=== PATIENT | male | born 1925 | race Caucasian/White ===

== ENCOUNTER 2016-12-22 17:35 | Inpatient (IN) | payer MEDICARE, BC ==
[2016-12-22] MEDS ORDERED: Sodium Chloride 0.9% 1,000 ML IV SCH (18:00)
--- NOTE | 2016-12-22 18:04 | EDM.PDOC ---
ED HPI GENERAL MEDICAL PROBLEM - General Chief Complaint: General Stated Complaint: decreased O2 sat, incontinence Time Seen by Provider: 12/22/16 17:45 Source of Information: Reports: Patient, correction records History Limitations: Reports: Other (confusion) - History of Present Illness INITIAL COMMENTS - FREE TEXT/NARRATIVE: pt in from the snf where they advise he has been confused, they also advised he fell a few times over the past few days, has abrasion to top of head , he also has a low 02 sat, on room air in the low to mid 80's. denies cp or sob , has a productive cough with yellow sputum. 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 (see below) (none) - Related Data Allergies Allergy/AdvReac Type Severity Reaction Status Date / Time No Known Allergies Allergy Verified 12/22/16 18:01 Home Meds: Home Meds Metoprolol Tartrate 25 mg pe PO BID 02/27/15 [History] Sertraline [Zoloft] 50 mg PO BEDTIME 02/27/15 [History] amLODIPine [Norvasc] 10 mg PO DAILY 02/27/15 [History] hydrALAZINE [Apresoline] 50 mg PO TID 02/27/15 [History] Acetaminophen [Acetaminophen Extra Strength] 1,000 mg PO Q4H 12/22/16 [History] Amino Acids/Protein Hydrolys [Liquacel 100 Liquid Packet] 30 ml PO DAILY [History] LORazepam [LORazepam] 0.25 mg PO Q6H PRN 12/22/16 [History] Sennosides/Docusate Sodium [Senna-Docusate Sodium] 2 each PO DAILY PRN 12/22/16 [History] Torsemide 20 mg PO DAILY 12/22/16 [History] Past Medical History HEENT History: Reports: Cataract Cardiovascular History: Reports: Heart Failure, Hypertension, Pacemaker Respiratory History: Reports: Other (see below) Other Respiratory History: mg's lung Genitourinary History: Reports: UTI, recurrent Musculoskeletal History: Reports: Arthritis, Back pain, chronic, Fracture, Neck pain, chronic Neurological History: Reports: Vertigo - Past Surgical History HEENT Surgical History: Reports: Cataract surgery, Naso-sinus surgery Cardiovascular Surgical History: Reports: Cardiac Ablation GI Surgical History: Reports: Appendectomy Musculoskeletal Surgical History: Reports: ORIF Social & Family History - Family History Family Medical History: Noncontributory - Tobacco Use Smoking Status *Q: Never Smoker Years of Tobacco use: 20 Second Hand Smoke Exposure: Yes - Caffeine Use Caffeine Use: Reports: None - Alcohol Use Days Per Week of Alcohol Use: 0 - Recreational Drug Use Recreational Drug Use: No ED ROS GENERAL - Review of Systems Review Of Systems: See Below Constitutional: Reports: fever, chills HEENT: Reports: No symptoms Respiratory: Reports: shortness of breath, wheezing, cough, sputum Cardiovascular: Reports: No symptoms Endocrine: Reports: no symptoms GI/Abdominal: Reports: No symptoms : Reports: no symptoms Musculoskeletal: Reports: no symptoms Skin: Reports: wound (abrasion to top of head) Neurological: Reports: confusion ED EXAM, GENERAL - Physical Exam Exam: See Below Exam Limited By: Altered mental status General Appearance: alert, thin (confused) Ears: normal external exam, normal canal, normal TMs Ear Exam: bilateral ear: auricle normal, canal normal, TM normal Nose: normal inspection, normal mucosa Throat/Mouth: Normal inspection, Normal lips, Normal oropharynx, Normal voice, No airway compromise Head: normocephalic, other (abrasion to top of head) Neck: normal inspection, supple, non-tender, full range of motion Respiratory/Chest: no respiratory distress, normal breath sounds, no accessory muscle use, wheezing. No: lungs clear Cardiovascular: normal peripheral pulses, regular rate, rhythm, systolic murmur. No: no edema (2 plus pitting edema in bilateral lower ext) Peripheral Pulses: 2+: radial (L), radial (R) GI/Abdominal: soft, non tender Back Exam: normal inspection, full range of motion Extremities: normal range of motion, non-tender, normal capillary refill, pedal edema Neurological: alert, normal cognition. No: oriented Psychiatric: normal affect Skin Exam: Warm, Dry, Normal color, No rash, Other (abrasion to top of head) EKG INTERPRETATION EKG Date: 12/22/16 Time: 18:35 Rate (beats/min): 69 EKG Interpretation Comments: paced Course - Vital Signs Last Recorded V/S: Last Vital Signs Temp 37.4 C 12/22/16 17:43 Pulse 59 L 12/22/16 17:43 Resp 22 H 12/22/16 17:43 BP 148/69 H 12/22/16 17:43 Pulse Ox 92 L 12/22/16 17:43 - Orders/Labs/Meds Orders: Active Orders 24 hr Category Date Time Status Patient Status Manage Transfer [TRANSFER] Routine ADT 12/22/16 18:34 Ordered Patient Status [ADT] Routine ADT 12/22/16 18:42 Active Bedrest Bathroom Privileges [RC] ASDIRECTED Care 12/22/16 18:42 Active Height and Weight [RC] DAILY Care 12/22/16 18:42 Active Intake and Output [RC] QSHIFT Care 12/22/16 18:45 Active Notify Provider Vital Signs [RC] ASDIRECTED Care 12/22/16 18:45 Active Oxygen Therapy [RC] PRN Care 12/22/16 18:42 Active RT Aerosol Therapy [RC] ASDIRECTED Care 12/22/16 18:47 Active VTE/DVT Education [RC] PER UNIT ROUTINE Care 12/22/16 18:42 Active Vital Signs [RC] Q4H Care 12/22/16 18:42 Active 2 Gram Sodium Diet [DIET] Diet 12/22/16 Dinner Active Chest 2V [CR] Stat Exams 12/22/16 17:54 Taken Head wo Cont [CT] Stat Exams 12/22/16 17:54 Taken BASIC METABOLIC PANEL,BMP [CHEM] AM Lab 12/23/16 05:11 Ordered CBC WITH AUTO DIFF [HEME] AM Lab 12/23/16 05:11 Ordered CRP [C-REACTIVE PROTEIN] [CHEM] Stat Lab 12/23/16 06:30 Ordered CULTURE BLOOD [BC] Stat Lab 12/22/16 17:54 Received CULTURE BLOOD [BC] Stat Lab 12/22/16 17:57 Received UA W/MICROSCOPIC [URIN] Stat Lab 12/22/16 17:54 Uncollected Albuterol/Ipratropium [DuoNeb 3.0-0.5 MG/3 ML] Med 12/22/16 18:45 Active 3 ml NEB Q4H Sodium Chloride 0.9% [Normal Saline] 1,000 ml Med 12/22/16 18:00 Active IV ASDIRECTED cefTRIAXone [Rocephin] Med 12/22/16 18:45 Active 1 gm IVPUSH Q24H Blood Culture x2 Reflex Set [OM.PC] Stat Oth 12/22/16 17:54 Ordered Resuscitation Status Routine Resus Stat 12/22/16 18:42 Ordered Medication Orders Albuterol/Ipratropium (Duoneb 3.0-0.5 Mg/3 Ml) 3 ml NEB Q4H [place] Ceftriaxone Sodium (Rocephin) 1 gm IVPUSH Q24H [place] Sodium Chloride (Normal Saline) 1,000 mls @ 75 mls/hr IV ASDIRECTED [facility] Labs: Laboratory Tests 12/22/16 12/22/16 12/22/16 Range/Units 17:54 17:54 17:54 WBC 10.1 H (5.0-10.0) 10^3/uL RBC 2.68 L (4.50-6.00) 10^6/uL Hgb 8.5 L (14.0-18.0) g/dL Hct 27.0 L (40.0-54.0) % MCV 100.7 H (82.0-94.0) fL MCH 31.7 (27.0-32.0) pg MCHC 31.5 L (33.0-38.0) g/dL RDW Coeff of Andrews 12.6 (11.0-15.0) % Plt Count 170 (150-400) 10^3/uL Neut % (Auto) 61.9 (35-85) % Lymph % (Auto) 25.4 (10-55) % Davie % (Auto) 10.2 (0-16) % Eos % (Auto) 2.3 (0-5) % Baso % (Auto) 0.2 (0-3) % Neut # 6.28 (1.80-7.00) 10^3/uL Lymph # 2.57 (1.00-4.80) 10^3/uL Davie # 1.03 H (0.00-0.80) 10^3/uL Eos # 0.23 (0.00-0.45) 10^3/uL Baso # 0.02 10^3/uL ABG pH 7.43 (7.35-7.45) ABG pCO2 28 L (35-45) mm/Hg0 ABG pO2 57 L (80-100) mm/Hg ABG HCO3 18.3 L (22.0-26.0) mm/L ABG O2 Saturation 91 L (95-98) % ABG Base Excess -6.0 L (-2.0-3.0) O2 Delivery Device Nasal cannula Oxygen Flow Rate 0 Sodium 143 (136-145) mEq/L Potassium 4.0 (3.5-5.0) mEq/L Chloride 106 (98-106) mEq/L Carbon Dioxide 20 L (21-32) mmol/L BUN 101 H* D (7-18) mg/dL Creatinine 4.7 H* D (0.7-1.3) mg/dL Est Cr Clr Drug Dosing 9.27 mL/min Estimated GFR (MDRD) 12 L (>=60) mL/min Glucose 140 H D (75-99) mg/dL Lactic Acid (0.4-2.0) mmol/L Calcium 8.5 (8.4-10.1) mg/dL Total Bilirubin 0.4 (0.0-1.0) mg/dL AST 13 L (15-37) U/L ALT 7 L (12-78) U/L Alkaline Phosphatase 49 (46-116) U/L Creatine Kinase 205 (35-232) U/L Troponin I 0.206 H (0.00-0.06) ng/mL Fkj-[id number]-Ighzxtpwkcs Pept 35680 H (0-1000) pg/nL Total Protein 6.9 (6.4-8.2) g/dL Albumin 3.1 L (3.4-5.0) g/dL 12/22/16 Range/Units 17:54 WBC (5.0-10.0) 10^3/uL RBC (4.50-6.00) 10^6/uL Hgb (14.0-18.0) g/dL Hct (40.0-54.0) % MCV (82.0-94.0) fL MCH (27.0-32.0) pg MCHC (33.0-38.0) g/dL RDW Coeff of Andrews (11.0-15.0) % Plt Count (150-400) 10^3/uL Neut % (Auto) (35-85) % Lymph % (Auto) (10-55) % Davie % (Auto) (0-16) % Eos % (Auto) (0-5) % Baso % (Auto) (0-3) % Neut # (1.80-7.00) 10^3/uL Lymph # (1.00-4.80) 10^3/uL Davie # (0.00-0.80) 10^3/uL Eos # (0.00-0.45) 10^3/uL Baso # 10^3/uL ABG pH (7.35-7.45) ABG pCO2 (35-45) mm/Hg0 ABG pO2 (80-100) mm/Hg ABG HCO3 (22.0-26.0) mm/L ABG O2 Saturation (95-98) % ABG Base Excess (-2.0-3.0) O2 Delivery Device Oxygen Flow Rate Sodium (136-145) mEq/L Potassium (3.5-5.0) mEq/L Chloride (98-106) mEq/L Carbon Dioxide (21-32) mmol/L BUN (7-18) mg/dL Creatinine (0.7-1.3) mg/dL Est Cr Clr Drug Dosing mL/min Estimated GFR (MDRD) (>=60) mL/min Glucose (75-99) mg/dL Lactic Acid 1.5 (0.4-2.0) mmol/L Calcium (8.4-10.1) mg/dL Total Bilirubin (0.0-1.0) mg/dL AST (15-37) U/L ALT (12-78) U/L Alkaline Phosphatase (46-116) U/L Creatine Kinase (35-232) U/L Troponin I (0.00-0.06) ng/mL Gzq-J-Ulstvhyanap Pept (0-1000) pg/nL Total Protein (6.4-8.2) g/dL Albumin (3.4-5.0) g/dL Meds: Medications Generic Name Dose Route Start Last Admin Trade Name Freq PRN Reason Stop Dose Admin Albuterol/Ipratropium 3 ml 12/22/16 18:45 Duoneb 3.0-0.5 Mg/3 Ml NEB Q4H [place] Ceftriaxone Sodium 1 gm 12/22/16 18:45 Rocephin IVPUSH Q24H [place] Sodium Chloride 1,000 mls @ 75 mls/hr 12/22/16 18:00 Normal Saline IV ASDIRECTED [facility] - Radiology Interpretation Free Text/Narrative:: increase markings retro cardiac, suspect pneumonia CT Results Date: 12/22/16 (ct head is neg for acute pathology, will wait on radiology reading . ) - Re-Assessments/Exams Free Text/Narrative Re-Assessment/Exam: 12/22/16 18:56 pts has a hx of renal insufficiency, however, now he has renal failure, I suspect this is from hypoxia. we will gently hydrate and repeat labs in am. pt is a DNR so he will be kept here and treated, as the pts dgtr and POA Suyapa Rudd does not wish to transfer him. As I spoke to her shortly after he arrived in the ED and she called and advised me of such.l Departure - Departure Time of Disposition: 19:08 Disposition: Admitted As Inpatient 68 Condition: good Clinical Impression: Pneumonia, Acute renal failure, Hypoxia, Anemia, Closed head injury, Frequent falls, Fever, Confusion - Problem List & Annotations (1) Acute renal failure SNOMED Code(s): 20128908 Code(s): N17.9 - ACUTE KIDNEY FAILURE, UNSPECIFIED Status: Acute Priority : High Current Visit: Yes Onset Date: ~12/22/16 Qualifiers: Acute renal failure type: unspecified Qualified Code(s): N17.9 - Acute kidney failure, unspecified (2) Anemia SNOMED Code(s): 730325900 Code(s): D64.9 - ANEMIA, UNSPECIFIED Status: Acute Priority: Medium Current Visit: Yes Qualifiers: Anemia type: iron deficiency (3) Closed head injury SNOMED Code(s): 664425220612 Code(s): S09.90XA - UNSPECIFIED INJURY OF HEAD, INITIAL ENCOUNTER Status: Acute Priority: High Current Visit: Yes Onset Date: ~12/22/16 Qualifiers: Encounter type: initial encounter Qualified Code(s): S09.90XA - Unspecified injury of head, initial encounter (4) Confusion SNOMED Code(s): 804171078 Code(s): R41.0 - DISORIENTATION, UNSPECIFIED Status: Acute Priority: High Current Visit: Yes Onset Date: ~12/22/16 (5) Fever SNOMED Code(s): 807581114 Code(s): R50.9 - FEVER, UNSPECIFIED Status: Acute Priority: High Current Visit: Yes Onset Date: ~12/22/16 Qualifiers: Fever type: unspecified Qualified Code(s): R50.9 - Fever, unspecified (6) Frequent falls SNOMED Code(s): 210221341 Code(s): R29.6 - REPEATED FALLS Status: Acute Priority: High Current Visit: Yes Onset Date: ~12/22/16 (7) Hypoxia SNOMED Code(s): 913911416, 618105488 Code(s): R09.02 - HYPOXEMIA Status: Acute Current Visit: Yes Onset Date : ~12/22/16 (8) Pneumonia SNOMED Code(s): 841876664 Code(s): J18.9 - PNEUMONIA, UNSPECIFIED ORGANISM Status: Acute Priority: High Current Visit: Yes Onset Date: ~12/22/16 - Problem List Review Problem List Initiated/Reviewed/Updated: Yes - My Orders Last 24 Hours: My Active Orders 12/22/16 17:54 Chest 2V [CR] Stat Head wo Cont [CT] Stat CULTURE BLOOD [BC] Stat UA W/MICROSCOPIC [URIN] Stat Blood Culture x2 Reflex Set [OM.PC] Stat 12/22/16 17:57 CULTURE BLOOD [BC] Stat 12/22/16 18:00 Sodium Chloride 0.9% [Normal Saline] 1,000 ml IV ASDIRECTED 12/22/16 18:34 Patient Status Manage Transfer [TRANSFER] Routine 12/22/16 18:42 Patient Status [ADT] Routine Bedrest Bathroom Privileges [RC] ASDIRECTED Height and Weight [RC] DAILY Oxygen Therapy [RC] PRN VTE/DVT Education [RC] PER UNIT ROUTINE Vital Signs [RC] Q4H Resuscitation Status Routine 12/22/16 18:45 Intake and Output [RC] QSHIFT Notify Provider Vital Signs [RC] ASDIRECTED Albuterol/Ipratropium [DuoNeb 3.0-0.5 MG/3 ML] 3 ml NEB Q4H cefTRIAXone [Rocephin] 1 gm IVPUSH Q24H 12/22/16 18:47 RT Aerosol Therapy [RC] ASDIRECTED 12/22/16 Dinner 2 Gram Sodium Diet [DIET] 12/23/16 05:11 BASIC METABOLIC PANEL,BMP [CHEM] AM CBC WITH AUTO DIFF [HEME] AM 12/23/16 06:30 CRP [C-REACTIVE PROTEIN] [CHEM] Stat - Assessment/Plan Admission H&P: Please use this note as an admission H&P Last 24 Hours: My Active Orders 12/22/16 17:54 Chest 2V [CR] Stat Head wo Cont [CT] Stat CULTURE BLOOD [BC] Stat UA W/MICROSCOPIC [URIN] Stat Blood Culture x2 Reflex Set [OM.PC] Stat 12/22/16 17:57 CULTURE BLOOD [BC] Stat 12/22/16 18:00 Sodium Chloride 0.9% [Normal Saline] 1,000 ml IV ASDIRECTED 12/22/16 18:34 Patient Status Manage Transfer [TRANSFER] Routine 12/22/16 18:42 Patient Status [ADT] Routine Bedrest Bathroom Privileges [RC] ASDIRECTED Height and Weight [RC] DAILY Oxygen Therapy [RC] PRN VTE/DVT Education [RC] PER UNIT ROUTINE Vital Signs [RC] Q4H Resuscitation Status Routine 12/22/16 18:45 Intake and Output [RC] QSHIFT Notify Provider Vital Signs [RC] ASDIRECTED Albuterol/Ipratropium [DuoNeb 3.0-0.5 MG/3 ML] 3 ml NEB Q4H cefTRIAXone [Rocephin] 1 gm IVPUSH Q24H 12/22/16 18:47 RT Aerosol Therapy [RC] ASDIRECTED 12/22/16 Dinner 2 Gram Sodium Diet [DIET] 12/23/16 05:11 BASIC METABOLIC PANEL,BMP [CHEM] AM CBC WITH AUTO DIFF [HEME] AM 12/23/16 06:30 CRP [C-REACTIVE PROTEIN] [CHEM] Stat
[2016-12-22 18:22] LABS: O2 DELIVERY DEVICE NASAL CANNULA; O2 FLOW RATE 0
[2016-12-22 18:24] LABS: BICARBONATE,ARTERIAL 18.3 mm/L (22.0-26.0); O2 SATURATION ARTERIAL 91 % (95-98); PCO2 ARTERIAL 28 mm/Hg0 (35-45); PO2 ARTERIAL 57 mm/Hg (80-100)
[2016-12-22] MEDS ORDERED: cefTRIAXone 1 GM Vial IVPUSH SCH (18:45)
[2016-12-22] MEDS ORDERED: Magnesium Hydroxide 400 MG/5 ML Susp 30 ML Cup PO PRN (19:21)
[2016-12-22] MEDS ORDERED: Acetaminophen 325 MG Tab PO PRN (19:21)
[2016-12-22] MEDS ORDERED: Temazepam 15 MG Cap PO PRN (19:21)
[2016-12-22] MEDS ORDERED: guaiFENesin 200 MG Tab PO PRN (19:21)
[2016-12-22] MEDS ORDERED: Acetaminophen 500 MG Tab PO PRN (19:30)
[2016-12-22] MEDS: Albuterol/Ipratropium 3.0-0.5 MG/3 ML Neb Soln NEB SCH (19:58)
[2016-12-22] MEDS ORDERED: Metoprolol Tartrate 50 MG Tab PO SCH (20:00)
[2016-12-22] MEDS ORDERED: Docusate Sodium 100 MG Cap PO SCH (20:00)
[2016-12-22] MEDS ORDERED: Non-Formulary Medication 1 Each (Hydralazine [Apresoline] 50 MG) PO SCH (20:00)
[2016-12-22] MEDS ORDERED: Sertraline 100 MG Tab PO SCH (20:00)
[2016-12-22] MEDS ORDERED: Non-Formulary Medication 1 Each (Sertraline [Zoloft] 50 MG) PO SCH (20:00)
[2016-12-22] MEDS ORDERED: Ibuprofen 200 MG Tab PO PRN (20:05)
[2016-12-22] MEDS: hydrALAZINE 25 MG Tab PO SCH (20:07)
[2016-12-22] MEDS: Metoprolol Tartrate 25 MG Tab PO SCH (20:07)
[2016-12-22] MEDS: LORazepam 0.5 MG Tab PO PRN (20:07)
[2016-12-23] MEDS: Albuterol/Ipratropium 3.0-0.5 MG/3 ML Neb Soln NEB SCH ×5 (00:12→13:42)
[2016-12-23] MEDS ORDERED: CITRATE PO SCH (08:00)
[2016-12-23] MEDS ORDERED: CALCIUM CARB PO SCH (08:00)
[2016-12-23] MEDS ORDERED: amLODIPine 10 MG Tab PO SCH ×2 (08:00)
[2016-12-23] MEDS ORDERED: PROTEIN HYDROLYS PO SCH (08:00)
[2016-12-23] MEDS ORDERED: VIT D3 PO SCH (08:00)
[2016-12-23] MEDS ORDERED: VITAMIN E PO SCH (08:00)
[2016-12-23] MEDS ORDERED: AMINO ACIDS PO SCH (08:00)
[2016-12-23] MEDS ORDERED: Aspirin 81 MG Tab.EC PO SCH (08:00)
[2016-12-23] MEDS ORDERED: [UNRECOGNIZED DRUG - OTHER] PO SCH (08:00)
[2016-12-23] MEDS ORDERED: Torsemide 20 MG Tab PO SCH (08:00)
[2016-12-23] MEDS ORDERED: Ferrous Sulfate 324 MG Tab.EC PO SCH (08:00)
[2016-12-23] MEDS ORDERED: Non-Formulary Medication 1 Each (Cholecalciferol (Vitamin D3) [Vitamin D3] 1,000 UNIT) PO SCH (08:00)
[2016-12-23] MEDS ORDERED: Albuterol/Ipratropium 3.0-0.5 MG/3 ML Neb Soln INH PRN (08:05)
[2016-12-23] MEDS: Metoprolol Tartrate 25 MG Tab PO SCH (08:07)
[2016-12-23] MEDS: hydrALAZINE 25 MG Tab PO SCH ×2 (08:08→15:02)
[2016-12-23 08:09] VITALS: BP 149/64
--- NOTE | 2016-12-23 10:07 | DISCH ---
HOSPITAL COURSE: Heraclio Penaloza is a gentleman transferred from his home in [facility] with question pneumonia, renal insufficiency. On examination, the patient was tremulous, on oxygen, gurgling throughout his chest, +1 pretibial edema. Lab; creatinine up to 4.82, proBNP is 13,000, hemoglobin has dropped to 7.4 possibly from hydration. Long discussion with the family member responsible for his healthcare and she wants him kept comfortable. No further lab or x- rays. No further medications. Hospice consult. DISCHARGE DIAGNOSIS: 1. END-STAGE CONGESTIVE HEART FAILURE, LEFT VENTRICULAR SYSTOLIC. 2. END-STAGE RENAL INSUFFICIENCY. 3. ANEMIA, QUESTION ETIOLOGY. LOWELL/RAVINDRA /[id number]
[2016-12-23] MEDS ORDERED: Morphine 2 MG/ML Syringe SUBCUT ONE (12:03)
[2016-12-23] MEDS: LORazepam 0.5 MG Tab PO PRN (13:27)
[2016-12-23] MEDS ORDERED: cefTRIAXone 1 GM Vial IVPUSH SCH (20:00)
== END 2016-12-23 14:10 | DRG 194 ==
LOC: CC.ED 17:35 → CC.MS 18:42
PROVIDERS: ADMIT Nurse Practitioner; ATTEND General Practice
DX: J18.9 Pneumonia, unspecified organism (principal); I50.20 Unspecified systolic (congestive) heart failure; N17.9 Acute kidney failure, unspecified; R09.02 Hypoxemia; I11.0 Hypertensive heart disease with heart failure; W18.30XA Fall on same level, unspecified, initial encounter; Y92.129 Unspecified place in nursing home as the place of occurrence of the external cause; Z66 Do not resuscitate; Z51.5 Encounter for palliative care; Z91.81 History of falling; S00.01XA Abrasion of scalp, initial encounter; D64.9 Anemia, unspecified; M54.9 Dorsalgia, unspecified; G89.29 Other chronic pain; M19.90 Unspecified osteoarthritis, unspecified site; Z87.440 Personal history of urinary (tract) infections
CPT/HCPCS: 36415; 36600; 70450; 71020; 80048; 80053; 82550; 82803; 83605; 83880; 84484; 85025; 86140; 87040; 93005; 93010; 99285; A9270-GY; J0696; J2270; J7030